=== PATIENT | female | born 1955 | race Caucasian/White ===

== ENCOUNTER 2018-03-14 14:44 | Inpatient (IN) ==
[2018-03-14 16:01] LABS: Basophils % 0.5 % (0.0-0.8); Eosinophils % 0.5 % (0.00-10.9); Hematocrit 31.5 VOL% (35.7-47.0); Hemoglobin 10.6 GM/DL (12.0-16.0); Immature Granulocytes % 0.3 %; Immature Granulocytes Absolute 0.02 #; Lymphocytes # 0.6 10*3/uL (1.4-4.0); Lymphocytes % 9.2 % (21.3-54.2); Mean Corpuscular HGB Conc 33.7 GM/DL (32-36); Mean Corpuscular Hemoglobin 29 PG (27-34); Mean Corpuscular Volume 87.3 FL (87-102); Monocytes # 0.5 10*3/uL (0.11-0.8); Monocytes % 7.4 % (1.7-12.7); Neutrophils # 5.5 10*3/uL (1.4-7.4); Neutrophils % 82.1 % (38.7-73.9); Platelet Count 191 T/CUMM (130-400); Red Blood Count 3.61 MC/CUMM (3.8-5.5); White Blood Count 6.7 T/CUMM (4-12)
[2018-03-14] MEDS ORDERED: VANCOMYCIN INJ 1,000 MG in SODIUM CHLORIDE 0.9% 250 ML IV STA (16:10)
[2018-03-14] MEDS ORDERED: FUROSEMIDE 40 MG/4 ML VIAL IV STA (16:10)
[2018-03-14 16:23] LABS: Albumin 3.1 G/DL (3.4-5.0); Bilirubin,Total 0.5 MG/DL (0.2-1.0); Calcium 9.3 MG/DL (8.5-10.1); Osmolality,Calculated 318.9 MOS/KG (273-304); Potassium 3.4 MMOL/L (3.5-5.1); Total Protein 8.7 G/DL (6.4-8.3)
[2018-03-14 16:24] LABS: Lactic Acid 1.5 MMOL/L (0.4-2.0)
[2018-03-14] MEDS ORDERED: INSULIN REGULAR 100 UNIT/ML IV STA (16:40)
[2018-03-14] MEDS ORDERED: INSULIN REGULAR 100 UNIT/ML SUBCUT STA (16:40)
[2018-03-14] MEDS ORDERED: INSULIN REGULAR 100 UNIT/ML ONE (16:46)
[2018-03-14] MEDS ORDERED: FUROSEMIDE 40 MG/4 ML VIAL ONE (16:52)
[2018-03-14] MEDS ORDERED: VANCOMYCIN 1,000 MG VIAL ONE (16:52)
[2018-03-14 17:13] LABS: Apearance,Urine CLEAR (Clear); Bilirubin,Urine Negative (Negative); Blood, Urine Moderate mg/dL (Negative); Glucose,Urine (UA) >=500 mg/dL (Negative); Hyaline Casts,Urine 9 /LPF (0-3); Ketones,Urine Negative (Negative); Mucus,Urine Occasional /LPF (Occasional); Nitrite,Urine Negative (Negative); Protein,Urine Negative; RBC,Urine 1 /HPF (0-4); Urine Color Yellow (Yellow); Urine Specific Gravity 1.006 (1.001-1.035); Urine Urobilinogen < 2.0 EU/DL (0.2-1.0); WBC,Urine <1 /HPF (0-6)
[2018-03-14] MEDS ORDERED: GLUCAGON 1 MG VIAL IM PRN (18:59)
[2018-03-14] MEDS ORDERED: DEXTROSE 50% 25 GM/50 ML VIAL IV PRN (18:59)
[2018-03-14] MEDS ORDERED: MAGNESIUM SULF RIDER 2 GM in PREMIX 1 EACH IV PRN (20:45)
[2018-03-14] MEDS ORDERED: PRAMIPEXOLE 0.25 MG TABLET PO SCH (21:00)
[2018-03-14] MEDS: ENOXAPARIN 30 MG/0.3 ML SYRINGE SUBCUT SCH (21:09)
[2018-03-14] MEDS: SODIUM CHLORIDE 0.9% 1,000 ML IV SCH (21:09)
[2018-03-14] MEDS: CARVEDILOL 3.125 MG TABLET PO SCH (21:17)
[2018-03-14] MEDS: TAMOXIFEN 10 MG TABLET PO SCH (21:17)
[2018-03-14] MEDS: INSULIN LISPRO 100 UNIT/ML SUBCUT SCH (21:17)
[2018-03-14] MEDS: CEFTAROLINE 300 MG in SODIUM CHLORIDE 0.9% 100 ML IV SCH (21:18)
[2018-03-15] MEDS: INSULIN LISPRO 100 UNIT/ML SUBCUT SCH ×6 (04:25→21:31)
[2018-03-15 05:26] LABS: Basophils % 0.3 % (0.0-0.8); Eosinophils % 0.1 % (0.00-10.9); Hematocrit 28.6 VOL% (35.7-47.0); Hemoglobin 9.9 GM/DL (12.0-16.0); Immature Granulocytes % 1.4 %; Immature Granulocytes Absolute 0.14 #; Lymphocytes # 0.7 10*3/uL (1.4-4.0); Lymphocytes % 7.3 % (21.3-54.2); Mean Corpuscular HGB Conc 34.6 GM/DL (32-36); Mean Corpuscular Hemoglobin 30 PG (27-34); Mean Corpuscular Volume 85.9 FL (87-102); Mean Platelet Volume 10.8 FL (9.6-12.0); Monocytes # 0.6 10*3/uL (0.11-0.8); Monocytes % 5.6 % (1.7-12.7); NRBC # 0.03 10*3/uL; Neutrophils # 8.6 10*3/uL (1.4-7.4); Neutrophils % 85.3 % (38.7-73.9); Platelet Count 188 T/CUMM (130-400); Red Blood Count 3.33 MC/CUMM (3.8-5.5); Red Cell Distribution Width 13.8 % (9.3-17.3)
[2018-03-15 06:11] LABS: Risk Ratio 3.87; Thyroid Stimulating Hormone 2.02 uIU/ml (0.358-3.74); VLDL CHOLESTEROL 32.2 MG/DL
[2018-03-15] MEDS ORDERED: metOLazone 5 MG TABLET PO SCH (09:00)
[2018-03-15] MEDS ORDERED: TORSEMIDE 100 MG PO SCH (09:00)
[2018-03-15] MEDS: CARVEDILOL 3.125 MG TABLET PO SCH ×2 (09:45→16:09)
[2018-03-15] MEDS: PANTOPRAZOLE 40 MG TABLET PO SCH (09:45)
[2018-03-15] MEDS: CEFTAROLINE 300 MG in SODIUM CHLORIDE 0.9% 100 ML IV SCH ×2 (09:48→21:33)
[2018-03-15] MEDS ORDERED: GLUCAGON 1 MG VIAL IM PRN (13:13)
[2018-03-15] MEDS ORDERED: DEXTROSE 50% 25 GM/50 ML VIAL IV PRN (13:13)
[2018-03-15] MEDS: SODIUM CHLORIDE 0.9% 1,000 ML IV SCH ×2 (13:32→22:35)
[2018-03-15] MEDS ORDERED: CYCLOBENZAPRINE 10 MG TABLET PO PRN (15:00)
[2018-03-15] MEDS: ENOXAPARIN 30 MG/0.3 ML SYRINGE SUBCUT SCH (21:23)
[2018-03-15] MEDS: TAMOXIFEN 10 MG TABLET PO SCH (21:27)
[2018-03-16] MEDS: INSULIN LISPRO 100 UNIT/ML SUBCUT SCH ×6 (01:02→21:59)
[2018-03-16 04:32] LABS: Basophils % 0.3 % (0.0-0.8); Eosinophils % 0.3 % (0.00-10.9); Hematocrit 33.5 VOL% (35.7-47.0); Immature Granulocytes % 0.3 %; Immature Granulocytes Absolute 0.02 #; Lymphocytes # 0.7 10*3/uL (1.4-4.0); Lymphocytes % 9.4 % (21.3-54.2); Mean Corpuscular HGB Conc 32.8 GM/DL (32-36); Mean Corpuscular Hemoglobin 29 PG (27-34); Mean Corpuscular Volume 87.9 FL (87-102); Mean Platelet Volume 10.8 FL (9.6-12.0); Monocytes # 0.4 10*3/uL (0.11-0.8); Monocytes % 6.1 % (1.7-12.7); Neutrophils # 5.9 10*3/uL (1.4-7.4); Neutrophils % 83.6 % (38.7-73.9); Platelet Count 157 T/CUMM (130-400); Red Blood Count 3.81 MC/CUMM (3.8-5.5); Red Cell Distribution Width 13.9 % (9.3-17.3)
[2018-03-16 05:11] LABS: Calcium 8.8 MG/DL (8.5-10.1); Osmolality,Calculated 312.2 MOS/KG (273-304); Potassium 2.6 MMOL/L (3.5-5.1)
[2018-03-16] MEDS: PANTOPRAZOLE 40 MG TABLET PO SCH (09:49)
[2018-03-16] MEDS: CARVEDILOL 3.125 MG TABLET PO SCH ×2 (09:49→17:21)
[2018-03-16] MEDS: CEFTAROLINE 300 MG in SODIUM CHLORIDE 0.9% 100 ML IV SCH ×2 (09:52→21:59)
[2018-03-16] MEDS ORDERED: POTASSIUM CHLORIDE 20 MEQ TABLET PO ONE (11:15)
[2018-03-16] MEDS: SODIUM CHLOR 0.9% KCL 40 MEQ 40 MEQ/1,000 ML BAG IV SCH (12:17)
[2018-03-16] MEDS: DICLOFENAC 1% GEL 100 GM TUBE TOP SCH ×2 (14:23→21:58)
[2018-03-16] MEDS: ALUMINUM/MAGNES/SIMETH MAX STR 30 ML UDCUP PO PRN (17:16)
[2018-03-16] MEDS: ENOXAPARIN 30 MG/0.3 ML SYRINGE SUBCUT SCH (21:55)
[2018-03-16] MEDS: TAMOXIFEN 10 MG TABLET PO SCH (21:58)
[2018-03-16] MEDS: SODIUM CHLORIDE 0.9% 1,000 ML IV SCH (23:13)
[2018-03-17] MEDS: INSULIN LISPRO 100 UNIT/ML SUBCUT SCH ×7 (01:03→23:41)
[2018-03-17] MEDS: ALUMINUM/MAGNES/SIMETH MAX STR 30 ML UDCUP PO PRN (01:07)
[2018-03-17] MEDS: SODIUM CHLOR 0.9% KCL 40 MEQ 40 MEQ/1,000 ML BAG IV SCH ×2 (01:08→16:15)
[2018-03-17 07:03] LABS: Basophils % 0.3 % (0.0-0.8); Eosinophils # 0.1 10*3/uL (0.0-0.87); Eosinophils % 1.8 % (0.00-10.9); Hematocrit 29.4 VOL% (35.7-47.0); Hemoglobin 9.6 GM/DL (12.0-16.0); Immature Granulocytes % 0.4 %; Immature Granulocytes Absolute 0.03 #; Lymphocytes # 0.7 10*3/uL (1.4-4.0); Lymphocytes % 10.1 % (21.3-54.2); Mean Corpuscular HGB Conc 32.7 GM/DL (32-36); Mean Corpuscular Hemoglobin 30 PG (27-34); Monocytes # 0.5 10*3/uL (0.11-0.8); Monocytes % 6.3 % (1.7-12.7); Neutrophils % 81.1 % (38.7-73.9); Platelet Count 178 T/CUMM (130-400); Red Blood Count 3.23 MC/CUMM (3.8-5.5); Red Cell Distribution Width 13.9 % (9.3-17.3); White Blood Count 7.4 T/CUMM (4-12)
[2018-03-17 07:18] LABS: Calcium 8.7 MG/DL (8.5-10.1); Osmolality,Calculated 312.5 MOS/KG (273-304); Potassium 3.5 MMOL/L (3.5-5.1)
[2018-03-17] MEDS: CARVEDILOL 3.125 MG TABLET PO SCH ×2 (09:21→16:05)
[2018-03-17] MEDS: PANTOPRAZOLE 40 MG TABLET PO SCH (09:21)
[2018-03-17] MEDS: DICLOFENAC 1% GEL 100 GM TUBE TOP SCH ×3 (09:21→21:02)
[2018-03-17] MEDS: CEFTAROLINE 300 MG in SODIUM CHLORIDE 0.9% 100 ML IV SCH (12:00)
[2018-03-17] MEDS ORDERED: PRAMIPEXOLE 0.25 MG TABLET PO PRN (14:35)
[2018-03-17] MEDS: AMOXICILLIN/CLAV 500 MG TABLET PO SCH ×2 (15:39→21:03)
[2018-03-17] MEDS: AMMONIUM LACTATE 12% LOTION 240 ML BOTTLE TOP SCH ×2 (16:12→21:02)
[2018-03-17] MEDS: CLOTRIMAZOLE 1% CREAM 15 GM TUBE TOP SCH ×2 (16:13→21:04)
[2018-03-17] MEDS ORDERED: INSULIN GLARGINE 100 UNIT/ML SUBCUT SCH (21:00)
[2018-03-17] MEDS: ENOXAPARIN 30 MG/0.3 ML SYRINGE SUBCUT SCH (21:02)
[2018-03-17] MEDS: TAMOXIFEN 10 MG TABLET PO SCH (21:03)
[2018-03-17] MEDS: INSULIN GLARGINE 100 UNIT/ML SUBCUT SCH (21:05)
[2018-03-18] MEDS: INSULIN LISPRO 100 UNIT/ML SUBCUT SCH ×5 (03:38→20:47)
[2018-03-18 04:11] LABS: Basophils % 0.6 % (0.0-0.8); Eosinophils # 0.3 10*3/uL (0.0-0.87); Eosinophils % 5.1 % (0.00-10.9); Hematocrit 27.7 VOL% (35.7-47.0); Hemoglobin 8.7 GM/DL (12.0-16.0); Immature Granulocytes % 0.5 %; Immature Granulocytes Absolute 0.03 #; Lymphocytes # 1.2 10*3/uL (1.4-4.0); Lymphocytes % 18.4 % (21.3-54.2); Mean Corpuscular HGB Conc 31.4 GM/DL (32-36); Mean Corpuscular Hemoglobin 29 PG (27-34); Mean Corpuscular Volume 92.6 FL (87-102); Mean Platelet Volume 10.9 FL (9.6-12.0); Monocytes # 0.6 10*3/uL (0.11-0.8); Monocytes % 8.4 % (1.7-12.7); Neutrophils # 4.4 10*3/uL (1.4-7.4); Platelet Count 156 T/CUMM (130-400); Red Blood Count 2.99 MC/CUMM (3.8-5.5); Red Cell Distribution Width 13.9 % (9.3-17.3); White Blood Count 6.5 T/CUMM (4-12)
[2018-03-18 04:36] LABS: Calcium 8.2 MG/DL (8.5-10.1); Osmolality,Calculated 310.4 MOS/KG (273-304); Potassium 3.9 MMOL/L (3.5-5.1)
[2018-03-18] MEDS: CARVEDILOL 3.125 MG TABLET PO SCH ×2 (10:18→17:27)
[2018-03-18] MEDS: INSULIN GLARGINE 100 UNIT/ML SUBCUT SCH ×2 (10:18→20:47)
[2018-03-18] MEDS: AMOXICILLIN/CLAV 500 MG TABLET PO SCH ×2 (10:18→20:46)
[2018-03-18] MEDS: PANTOPRAZOLE 40 MG TABLET PO SCH (10:18)
[2018-03-18] MEDS: AMMONIUM LACTATE 12% LOTION 240 ML BOTTLE TOP SCH ×2 (10:19→20:47)
[2018-03-18] MEDS: CLOTRIMAZOLE 1% CREAM 15 GM TUBE TOP SCH ×2 (10:19→20:45)
[2018-03-18] MEDS: DICLOFENAC 1% GEL 100 GM TUBE TOP SCH ×3 (10:19→20:45)
[2018-03-18] MEDS: ENOXAPARIN 30 MG/0.3 ML SYRINGE SUBCUT SCH (20:45)
[2018-03-18] MEDS: TAMOXIFEN 10 MG TABLET PO SCH (20:46)
[2018-03-19] MEDS: INSULIN LISPRO 100 UNIT/ML SUBCUT SCH ×4 (00:43→12:34)
[2018-03-19] MEDS: PANTOPRAZOLE 40 MG TABLET PO SCH (10:55)
[2018-03-19] MEDS: AMOXICILLIN/CLAV 500 MG TABLET PO SCH (10:55)
[2018-03-19] MEDS: INSULIN GLARGINE 100 UNIT/ML SUBCUT SCH (10:56)
[2018-03-19] MEDS: DICLOFENAC 1% GEL 100 GM TUBE TOP SCH (10:56)
[2018-03-19] MEDS: CARVEDILOL 3.125 MG TABLET PO SCH (10:56)
[2018-03-19] MEDS: CLOTRIMAZOLE 1% CREAM 15 GM TUBE TOP SCH (10:57)
[2018-03-19] MEDS: AMMONIUM LACTATE 12% LOTION 240 ML BOTTLE TOP SCH (10:57)
[2018-03-19 12:05] VITALS: BP 145/51
== END 2018-03-19 15:50 | disposition home or self-care (01) | DRG 603 ==
LOC: N.ED 14:44 → N.EDINP 18:00 → N.3E 20:14
PROVIDERS: ADMIT Internal Medicine; ATTEND Internal Medicine

== ENCOUNTER 2019-02-20 15:27 | Inpatient (IN) ==
[2019-02-20] MEDS ORDERED: SODIUM CHLORIDE 0.9% 1,000 ML IV STA (16:11)
[2019-02-20 16:28] LABS: Basophils % 0.2 % (0.0-0.8); Hematocrit 38.9 VOL% (35.7-47.0); Hemoglobin 12.2 GM/DL (12.0-16.0); Immature Granulocytes % 0.9 %; Immature Granulocytes Absolute 0.09 #; Lymphocytes # 0.7 10*3/uL (1.4-4.0); Lymphocytes % 7.3 % (21.3-54.2); Mean Corpuscular HGB Conc 31.4 GM/DL (32-36); Monocytes % 5.5 % (1.7-12.7); Neutrophils % 86.1 % (38.7-73.9); Platelet Count 149 T/CUMM (130-400); Red Blood Count 4.01 MC/CUMM (3.8-5.5); Red Cell Distribution Width 13.2 % (9.3-17.3); White Blood Count 9.8 T/CUMM (4-12)
[2019-02-20 16:51] LABS: Albumin 3.4 G/DL (3.4-5.0); Bilirubin,Total 0.5 MG/DL (0.2-1.0); Calcium 8.8 MG/DL (8.5-10.1); Osmolality,Calculated 319.8 MOS/KG (273-304); Total Protein 7.3 G/DL (6.4-8.3)
[2019-02-20] MEDS ORDERED: INSULIN REGULAR 100 UNIT/ML IV STA (16:55)
[2019-02-20] MEDS ORDERED: DEXAMETHASONE 4 MG/1 ML VIAL IM STA (17:13)
[2019-02-20] MEDS ORDERED: ALBUTEROL 2.5 MG/3 ML NEB RESP TX PRN (17:18)
[2019-02-20] MEDS ORDERED: ONDANSETRON 4 MG/2 ML VIAL IV PRN (17:18)
[2019-02-20] MEDS ORDERED: PROMETHAZINE 25 MG/1 ML VIAL IM PRN (17:18)
[2019-02-20] MEDS ORDERED: MAGNESIUM SULF RIDER 4 GM in PREMIX 1 EACH IV PRN (17:20)
[2019-02-20] MEDS ORDERED: SODIUM PHOSPHATE IV PRN (17:20)
[2019-02-20] MEDS ORDERED: DEXTROSE 50% 25 GM/50 ML SYRINGE IV PRN ×2 (17:20)
[2019-02-20] MEDS ORDERED: INSULIN REGULAR 100 UNIT/ML IV ONE (17:20)
[2019-02-20] MEDS ORDERED: SODIUM CHLORIDE 0.9% IV PRN (17:20)
[2019-02-20] MEDS ORDERED: SODIUM CHLORIDE 0.9% 1,000 ML IV ONE (17:20)
[2019-02-20] MEDS ORDERED: SODIUM BICARB INJ 100 MEQ in STERILE WATER INJ 400 ML IV PRN (17:20)
[2019-02-20] MEDS ORDERED: MAGNESIUM SULF RIDER 2 GM in PREMIX 1 EACH IV PRN (17:20)
[2019-02-20] MEDS ORDERED: SENNA 8.6 MG TABLET PO PRN (18:07)
[2019-02-20] MEDS: INSULIN REGULAR DRIP 100 ML IV SCH (18:30)
[2019-02-20] MEDS: SODIUM CHLORIDE 0.9% 1,000 ML IV SCH ×2 (19:00→21:00)
[2019-02-20 20:51] LABS: Calcium 8.6 MG/DL (8.5-10.1)
[2019-02-20 20:59] LABS: Troponin I 2.95 NG/ML (0.00-0.045)
[2019-02-20] MEDS ORDERED: ENOXAPARIN 30 MG/0.3 ML SYRINGE SUBCUT SCH (21:00)
[2019-02-20 21:28] LABS: Apearance,Urine Slightly Hazy (Clear); Bacteria,Urine Occasional /HPF (Few); Bilirubin,Urine Negative (Negative); Blood, Urine Small mg/dL (Negative); Glucose,Urine (UA) >=500 mg/dL (Negative); Ketones,Urine 80 mg/dL (Negative); Mucus,Urine Occasional /LPF (Occasional); Nitrite,Urine Negative (Negative); Protein,Urine Negative; RBC,Urine 1 /HPF (0-4); Squamous Epithelial Cell,Urine Occasional /HPF (0-10); Urine Color Straw (Yellow); Urine Urobilinogen < 2.0 EU/DL (0.2-1.0); WBC,Urine 5 /HPF (0-6)
[2019-02-20] MEDS ORDERED: SODIUM CHLORIDE 0.9% 1,000 ML IV SCH (22:20)
[2019-02-20 22:33] LABS: Calcium 8.7 MG/DL (8.5-10.1); Osmolality,Calculated 311.5 MOS/KG (273-304)
[2019-02-20] MEDS: ENOXAPARIN 100 MG/ML SYRINGE SUBCUT SCH (22:48)
[2019-02-20 23:35] LABS: CKMB % 5.3 %
[2019-02-20 23:41] LABS: Troponin I 2.38 NG/ML (0.00-0.045)
[2019-02-20 23:47] LABS: ABG Base Excess -14.1 MMOL/L (-2.5-2.5); ABG HCO3 13.6 MMOL/L (20-26); ABG Oxygen Saturation 97.2 % (95-100); ABG PCO2 27.9 MM HG (35-48); ABG PH 7.247 (7.35-7.45); ABG TCO2 11.1 MMOL/L (23-27); Allen Test Positive; Pt O2 Delivery Device Room Air
[2019-02-21] MEDS: CARBOXYMETHYLCELLULOSE 1% OPH SOLN BOTH EYES SCH ×3 (00:08→20:55)
[2019-02-21] MEDS: TAMOXIFEN 10 MG TABLET PO SCH ×2 (00:09→20:55)
[2019-02-21] MEDS: CARVEDILOL 3.125 MG TABLET PO SCH ×3 (00:09→17:13)
[2019-02-21] MEDS: SODIUM CHLOR 0.45% KCL 20 MEQ 20 MEQ/1,000 ML BAG IV SCH ×2 (00:56→07:07)
[2019-02-21 01:31] LABS: Calcium 8.2 MG/DL (8.5-10.1); Osmolality,Calculated 311.1 MOS/KG (273-304)
[2019-02-21] MEDS ORDERED: DEXT 5% NACL 0.45% KCL 20 MEQ 20 MEQ/1,000 ML BAG IV SCH (05:30)
[2019-02-21 05:34] LABS: Basophils % 0.2 % (0.0-0.8); Eosinophils % 0.1 % (0.00-10.9); Hematocrit 31.9 VOL% (35.7-47.0); Hemoglobin 10.4 GM/DL (12.0-16.0); Immature Granulocytes % 0.8 %; Immature Granulocytes Absolute 0.07 #; Lymphocytes # 1.1 10*3/uL (1.4-4.0); Mean Corpuscular HGB Conc 32.6 GM/DL (32-36); Mean Corpuscular Volume 94.7 FL (87-102); Mean Platelet Volume 11.2 FL (9.6-12.0); Monocytes % 11.3 % (1.7-12.7); Neutrophils % 75.6 % (38.7-73.9); Platelet Count 114 T/CUMM (130-400); Red Blood Count 3.37 MC/CUMM (3.8-5.5); Red Cell Distribution Width 13.3 % (9.3-17.3); White Blood Count 9.1 T/CUMM (4-12)
[2019-02-21 05:50] LABS: Calcium 8.3 MG/DL (8.5-10.1); Osmolality,Calculated 305.1 MOS/KG (273-304)
[2019-02-21 05:54] LABS: Risk Ratio 5.1; VLDL CHOLESTEROL 48.6 MG/DL
[2019-02-21 06:07] LABS: Troponin I 2.45 NG/ML (0.00-0.045)
[2019-02-21] MEDS: SIMVASTATIN 10 MG TABLET PO SCH (08:16)
[2019-02-21] MEDS: PANTOPRAZOLE 40 MG TABLET PO SCH (08:16)
[2019-02-21] MEDS: ENOXAPARIN 100 MG/ML SYRINGE SUBCUT SCH ×2 (08:20→20:55)
[2019-02-21] MEDS: DEXTROSE 5% LACTATED RINGERS 1,000 ML IV SCH ×4 (09:17→23:16)
[2019-02-21 09:30] LABS: Calcium 8.2 MG/DL (8.5-10.1); Osmolality,Calculated 302.1 MOS/KG (273-304)
[2019-02-21] MEDS ORDERED: GLUCAGON 1 MG VIAL IM PRN (10:14)
[2019-02-21] MEDS ORDERED: DEXTROSE 50% 25 GM/50 ML VIAL IV PRN (10:14)
[2019-02-21] MEDS ORDERED: SODIUM CHLORIDE 0.45% 1,000 ML IV SCH (10:20)
[2019-02-21 14:01] LABS: Calcium 8.5 MG/DL (8.5-10.1); Osmolality,Calculated 296.3 MOS/KG (273-304)
[2019-02-21] MEDS: INSULIN REGULAR DRIP 100 ML IV SCH ×2 (14:35→17:34)
[2019-02-22] MEDS: DEXTROSE 5% LACTATED RINGERS 1,000 ML IV SCH ×2 (05:41→11:55)
[2019-02-22 05:45] LABS: Calcium 8.2 MG/DL (8.5-10.1); Osmolality,Calculated 290.1 MOS/KG (273-304)
[2019-02-22] MEDS: POTASSIUM CHLORIDE RIDER 10 MEQ in PREMIX 1 EACH IV PRN ×2 (06:00→07:09)
[2019-02-22] MEDS: POTASSIUM CHLORIDE 20 MEQ TABLET PO SCH ×4 (08:34→20:47)
[2019-02-22] MEDS: SIMVASTATIN 10 MG TABLET PO SCH (08:34)
[2019-02-22] MEDS: ASPIRIN EC 81 MG TABLET PO SCH (08:34)
[2019-02-22] MEDS: CARVEDILOL 3.125 MG TABLET PO SCH ×2 (08:34→16:39)
[2019-02-22] MEDS: PANTOPRAZOLE 40 MG TABLET PO SCH (08:34)
[2019-02-22] MEDS: ENOXAPARIN 100 MG/ML SYRINGE SUBCUT SCH (08:34)
[2019-02-22] MEDS: INSULIN GLARGINE 100 UNIT/ML SUBCUT SCH (08:40)
[2019-02-22] MEDS: TORSEMIDE 20 MG TABLET PO SCH (08:55)
[2019-02-22] MEDS: CARBOXYMETHYLCELLULOSE 1% OPH SOLN BOTH EYES SCH ×2 (09:08→22:10)
[2019-02-22] MEDS: INSULIN LISPRO 100 UNIT/ML SUBCUT SCH ×3 (11:52→20:48)
[2019-02-22] MEDS: cefTRIAXone 1,000 MG in SYRINGE 1 EACH IV SCH (13:53)
[2019-02-22] MEDS ORDERED: LACTATED RINGERS 500 ML IV ONE (17:53)
[2019-02-22] MEDS: LACTATED RINGERS 1,000 ML IV SCH ×2 (18:42→22:24)
[2019-02-22] MEDS: ROSUVASTATIN 10 MG TABLET PO SCH (20:47)
[2019-02-22] MEDS: TAMOXIFEN 10 MG TABLET PO SCH (20:47)
[2019-02-23] MEDS: INSULIN LISPRO 100 UNIT/ML SUBCUT SCH ×6 (02:09→21:23)
[2019-02-23 05:23] LABS: Osmolality,Calculated 290.5 MOS/KG (273-304)
[2019-02-23 05:26] LABS: Troponin I 1.1 NG/ML (0.00-0.045)
[2019-02-23] MEDS: LACTATED RINGERS 1,000 ML IV SCH ×2 (05:27→09:21)
[2019-02-23] MEDS: INSULIN GLARGINE 100 UNIT/ML SUBCUT SCH ×3 (09:11→21:22)
[2019-02-23] MEDS: ENOXAPARIN 40 MG/0.4 ML SYRINGE SUBCUT SCH (09:11)
[2019-02-23] MEDS: PANTOPRAZOLE 40 MG TABLET PO SCH (09:12)
[2019-02-23] MEDS: TORSEMIDE 20 MG TABLET PO SCH (09:12)
[2019-02-23] MEDS: CARVEDILOL 3.125 MG TABLET PO SCH ×2 (09:12→17:19)
[2019-02-23] MEDS: ASPIRIN EC 81 MG TABLET PO SCH (09:12)
[2019-02-23] MEDS: cefTRIAXone 1,000 MG in SYRINGE 1 EACH IV SCH (14:49)
[2019-02-23] MEDS: CARBOXYMETHYLCELLULOSE 1% OPH SOLN BOTH EYES SCH ×2 (17:19→21:24)
[2019-02-23] MEDS: TAMOXIFEN 10 MG TABLET PO SCH (21:24)
[2019-02-23] MEDS: ROSUVASTATIN 10 MG TABLET PO SCH (21:24)
[2019-02-24] MEDS: INSULIN LISPRO 100 UNIT/ML SUBCUT SCH ×6 (01:01→20:46)
[2019-02-24 03:19] LABS: Calcium 8.4 MG/DL (8.5-10.1); Osmolality,Calculated 292.4 MOS/KG (273-304)
[2019-02-24] MEDS: ENOXAPARIN 40 MG/0.4 ML SYRINGE SUBCUT SCH (08:56)
[2019-02-24] MEDS: POTASSIUM CHLORIDE RIDER 10 MEQ in PREMIX 1 EACH IV PRN ×2 (08:56→13:22)
[2019-02-24] MEDS: ASPIRIN EC 81 MG TABLET PO SCH (08:56)
[2019-02-24] MEDS: INSULIN GLARGINE 100 UNIT/ML SUBCUT SCH ×2 (08:56→20:46)
[2019-02-24] MEDS: PANTOPRAZOLE 40 MG TABLET PO SCH (08:56)
[2019-02-24] MEDS: CARVEDILOL 3.125 MG TABLET PO SCH ×2 (08:56→16:20)
[2019-02-24] MEDS: TORSEMIDE 20 MG TABLET PO SCH (08:56)
[2019-02-24] MEDS: CARBOXYMETHYLCELLULOSE 1% OPH SOLN BOTH EYES SCH ×2 (08:57→20:51)
[2019-02-24] MEDS: POTASSIUM CHLORIDE RIDER 20 MEQ in PREMIX 1 EACH IV PRN ×2 (09:17→11:21)
[2019-02-24] MEDS: cefTRIAXone 1,000 MG in SYRINGE 1 EACH IV SCH (13:03)
[2019-02-24] MEDS: TAMOXIFEN 10 MG TABLET PO SCH (20:47)
[2019-02-24] MEDS: ROSUVASTATIN 10 MG TABLET PO SCH (20:48)
[2019-02-25] MEDS: INSULIN LISPRO 100 UNIT/ML SUBCUT SCH ×6 (00:59→20:44)
[2019-02-25 05:26] LABS: Basophils % 0.1 % (0.0-0.8); Eosinophils # 0.2 10*3/uL (0.0-0.87); Hematocrit 38.9 VOL% (35.7-47.0); Hemoglobin 12.4 GM/DL (12.0-16.0); Immature Granulocytes % 0.8 %; Immature Granulocytes Absolute 0.06 #; Lymphocytes # 1.5 10*3/uL (1.4-4.0); Mean Corpuscular HGB Conc 31.9 GM/DL (32-36); Mean Platelet Volume 11.4 FL (9.6-12.0); Monocytes % 10.6 % (1.7-12.7); Neutrophils % 67.5 % (38.7-73.9); Platelet Count 101 T/CUMM (130-400); Red Blood Count 4.05 MC/CUMM (3.8-5.5); Red Cell Distribution Width 13.2 % (9.3-17.3); White Blood Count 7.9 T/CUMM (4-12)
[2019-02-25] MEDS: ASPIRIN EC 81 MG TABLET PO SCH (08:45)
[2019-02-25] MEDS: CARBOXYMETHYLCELLULOSE 1% OPH SOLN BOTH EYES SCH ×2 (08:45→20:45)
[2019-02-25] MEDS: TORSEMIDE 20 MG TABLET PO SCH (08:45)
[2019-02-25] MEDS: CARVEDILOL 3.125 MG TABLET PO SCH ×2 (08:46→16:00)
[2019-02-25] MEDS: PANTOPRAZOLE 40 MG TABLET PO SCH (08:46)
[2019-02-25] MEDS: INSULIN GLARGINE 100 UNIT/ML SUBCUT SCH ×2 (08:46→20:48)
[2019-02-25] MEDS: ENOXAPARIN 40 MG/0.4 ML SYRINGE SUBCUT SCH (08:46)
[2019-02-25] MEDS: cefTRIAXone 1,000 MG in SYRINGE 1 EACH IV SCH (13:55)
[2019-02-25] MEDS ORDERED: INSULIN GLARGINE 100 UNIT/ML SUBCUT SCH (13:59)
[2019-02-25] MEDS ORDERED: SODIUM CHLORIDE 0.9% 500 ML IV ONE (14:18)
[2019-02-25] MEDS: ROSUVASTATIN 10 MG TABLET PO SCH (20:45)
[2019-02-25] MEDS: TAMOXIFEN 10 MG TABLET PO SCH (20:46)
[2019-02-25] MEDS: ACETAMINOPHEN 325 MG TABLET PO PRN (20:46)
[2019-02-26] MEDS: INSULIN LISPRO 100 UNIT/ML SUBCUT SCH ×4 (01:53→12:33)
[2019-02-26 02:30] LABS: Basophils % 0.2 % (0.0-0.8); Eosinophils # 0.2 10*3/uL (0.0-0.87); Eosinophils % 1.9 % (0.00-10.9); Hematocrit 37.6 VOL% (35.7-47.0); Immature Granulocytes % 0.4 %; Immature Granulocytes Absolute 0.03 #; Lymphocytes # 1.5 10*3/uL (1.4-4.0); Lymphocytes % 17.9 % (21.3-54.2); Mean Corpuscular HGB Conc 31.9 GM/DL (32-36); Mean Corpuscular Volume 95.9 FL (87-102); Mean Platelet Volume 11.3 FL (9.6-12.0); Monocytes % 11.2 % (1.7-12.7); Neutrophils % 68.4 % (38.7-73.9); Platelet Count 123 T/CUMM (130-400); Red Blood Count 3.92 MC/CUMM (3.8-5.5); Red Cell Distribution Width 13.2 % (9.3-17.3); White Blood Count 8.4 T/CUMM (4-12)
[2019-02-26 02:55] LABS: Calcium 8.4 MG/DL (8.5-10.1); Osmolality,Calculated 282.8 MOS/KG (273-304)
[2019-02-26] MEDS: ACETAMINOPHEN 325 MG TABLET PO PRN ×2 (04:50→08:42)
[2019-02-26] MEDS: POTASSIUM CHLORIDE RIDER 20 MEQ in PREMIX 1 EACH IV PRN ×2 (08:36→10:40)
[2019-02-26] MEDS: CARVEDILOL 3.125 MG TABLET PO SCH (08:37)
[2019-02-26] MEDS: TORSEMIDE 20 MG TABLET PO SCH (08:37)
[2019-02-26] MEDS: ASPIRIN EC 81 MG TABLET PO SCH (08:37)
[2019-02-26] MEDS: PANTOPRAZOLE 40 MG TABLET PO SCH (08:37)
[2019-02-26] MEDS: CARBOXYMETHYLCELLULOSE 1% OPH SOLN BOTH EYES SCH (08:38)
[2019-02-26] MEDS: ENOXAPARIN 40 MG/0.4 ML SYRINGE SUBCUT SCH (08:38)
[2019-02-26] MEDS ORDERED: MAGNESIUM CHLORIDE 64 MG TABLET PO SCH (10:59)
[2019-02-26] MEDS ORDERED: HEPARIN LOCK FLUSH 500 UNIT/5 ML SYRINGE IV ONE (12:30)
[2019-02-26] MEDS: POTASSIUM CHLORIDE RIDER 10 MEQ in PREMIX 1 EACH IV PRN (12:40)
[2019-02-26] MEDS: cefTRIAXone 1,000 MG in SYRINGE 1 EACH IV SCH (14:10)
[2019-02-26 14:22] VITALS: BP 102/76
[2019-02-27] MEDS ORDERED: TORSEMIDE 20 MG TABLET PO SCH (09:00)
== END 2019-02-26 15:35 | disposition swing bed (61) | DRG 638 ==
LOC: EDBD → EDUNIT# → N.ED 15:27 → SUATTDRO 17:18 → N.EDINP 17:18 → SUATTDRO 17:19 → N.ICU 21:12 → N.4E 02-22 22:09
PROVIDERS: ADMIT Family Medicine; ATTEND Internal Medicine

== ENCOUNTER 2019-05-06 13:19 | Observation (INO) ==
[2019-05-06] MEDS ORDERED: ONDANSETRON 4 MG/2 ML VIAL IV ONE (14:14)
[2019-05-06] MEDS ORDERED: SODIUM CHLORIDE 0.9% 1,000 ML IV STA (14:14)
[2019-05-06 14:40] LABS: Basophils # 0.1 10*3/uL (0.0-0.2); Basophils % 0.8 % (0.0-0.8); Eosinophils # 0.1 10*3/uL (0.0-0.87); Eosinophils % 1.8 % (0.00-10.9); Hematocrit 35.8 VOL% (35.7-47.0); Hemoglobin 11.8 GM/DL (12.0-16.0); Immature Granulocytes % 0.5 %; Immature Granulocytes Absolute 0.04 #; Lymphocytes # 1.1 10*3/uL (1.4-4.0); Lymphocytes % 13.4 % (21.3-54.2); Mean Corpuscular Volume 91.1 FL (87-102); Monocytes % 5.9 % (1.7-12.7); Neutrophils % 77.6 % (38.7-73.9); Platelet Count 149 T/CUMM (130-400); Red Blood Count 3.93 MC/CUMM (3.8-5.5); Red Cell Distribution Width 11.8 % (9.3-17.3)
[2019-05-06 14:48] LABS: INR 0.9
[2019-05-06 14:59] LABS: Alanine Aminotransferase 39 U/L (13-56); Albumin 3.4 G/DL (3.4-5.0); Alkaline Phosphatase 87 U/L (45-117); Aspartate Amino Transferase 22 U/L (0-37); Blood Urea Nitrogen 53 MG/DL (7-18); Calcium 8.9 MG/DL (8.5-10.1); Osmolality,Calculated 295.1 MOS/KG (273-304); Total Protein 7.6 G/DL (6.4-8.3); Troponin I < 0.015 NG/ML (0.00-0.045)
[2019-05-06 15:14] LABS: Glucose 556 MG/DL (74-106)
[2019-05-06 15:17] LABS: Apearance,Urine CLEAR (Clear); Bacteria,Urine Occasional /HPF (Few); Bilirubin,Urine Negative (Negative); Blood, Urine Small mg/dL (Negative); Glucose,Urine (UA) >=500 mg/dL (Negative); Ketones,Urine 20 mg/dL (Negative); Mucus,Urine Occasional /LPF (Occasional); Nitrite,Urine Negative (Negative); Protein,Urine Negative; Urine Color Straw (Yellow); Urine Specific Gravity 1.007 (1.001-1.035); Urine Urobilinogen < 2.0 EU/DL (0.2-1.0); WBC,Urine 5 /HPF (0-6)
[2019-05-06] MEDS ORDERED: INSULIN REGULAR 100 UNIT/ML IV ONE (15:17)
[2019-05-06 15:56] LABS: Pt O2 Delivery Device Room Air
[2019-05-06 15:57] LABS: ABG HCO3 23.6 MMOL/L (20-26); ABG PCO2 30.2 MM HG (35-48); ABG PH 7.467 (7.35-7.45); ABG TCO2 19.2 MMOL/L (23-27)
[2019-05-06] MEDS ORDERED: GLUCAGON 1 MG VIAL IM PRN (16:52)
[2019-05-06] MEDS ORDERED: DEXTROSE 50% 25 GM/50 ML VIAL IV PRN (16:52)
[2019-05-06] MEDS ORDERED: ONDANSETRON 4 MG/2 ML VIAL IV PRN (16:52)
[2019-05-06] MEDS ORDERED: LACTULOSE 20 GM/30 ML UDCUP PO PRN (16:52)
[2019-05-06] MEDS ORDERED: ACETAMINOPHEN 325 MG TABLET PO PRN (16:52)
[2019-05-06 17:21] LABS: Thyroid Stimulating Hormone 2.22 uIU/ml (0.358-3.74)
[2019-05-06] MEDS: ENOXAPARIN 30 MG/0.3 ML SYRINGE SUBCUT SCH (17:25)
[2019-05-06] MEDS: SODIUM CHLORIDE 0.9% 1,000 ML IV SCH (18:33)
[2019-05-06] MEDS: INSULIN REGULAR 100 UNIT/ML SUBCUT SCH (21:56)
[2019-05-07 04:45] LABS: Basophils # 0.1 10*3/uL (0.0-0.2); Basophils % 0.8 % (0.0-0.8); Eosinophils # 0.3 10*3/uL (0.0-0.87); Eosinophils % 4.4 % (0.00-10.9); Hematocrit 30.7 VOL% (35.7-47.0); Hemoglobin 10.2 GM/DL (12.0-16.0); Immature Granulocytes % 0.3 %; Immature Granulocytes Absolute 0.02 #; Lymphocytes # 1.9 10*3/uL (1.4-4.0); Lymphocytes % 30.2 % (21.3-54.2); Mean Corpuscular HGB Conc 33.2 GM/DL (32-36); Mean Corpuscular Volume 91.6 FL (87-102); Mean Platelet Volume 11.4 FL (9.6-12.0); Monocytes % 8.5 % (1.7-12.7); Neutrophils % 55.8 % (38.7-73.9); Platelet Count 140 T/CUMM (130-400); Red Blood Count 3.35 MC/CUMM (3.8-5.5); Red Cell Distribution Width 12.1 % (9.3-17.3); White Blood Count 6.4 T/CUMM (4-12)
[2019-05-07 05:22] LABS: Calcium 8.4 MG/DL (8.5-10.1); Osmolality,Calculated 298.3 MOS/KG (273-304); Risk Ratio 4.33; VLDL CHOLESTEROL 70.2 MG/DL
[2019-05-07] MEDS: INSULIN REGULAR 100 UNIT/ML SUBCUT SCH ×4 (10:10→22:08)
[2019-05-07] MEDS: INSULIN ASPART PROTAMINE/ASPART 70/30 100 UNIT/ML SUBCUT SCH (10:11)
[2019-05-07] MEDS: POTASSIUM CHLORIDE 20 MEQ TABLET PO SCH (10:11)
[2019-05-07] MEDS: PANTOPRAZOLE 40 MG TABLET PO SCH (10:11)
[2019-05-07] MEDS: SODIUM CHLORIDE 0.9% 1,000 ML IV SCH (10:15)
[2019-05-07] MEDS: ENOXAPARIN 30 MG/0.3 ML SYRINGE SUBCUT SCH (17:10)
[2019-05-07] MEDS: MENTHOL/ZINC OXIDE OINT 71 GM JAR TOP SCH (22:08)
[2019-05-08 06:10] LABS: Calcium 8.7 MG/DL (8.5-10.1); Osmolality,Calculated 293.3 MOS/KG (273-304)
[2019-05-08] MEDS ORDERED: SENNA 8.6 MG TABLET PO PRN (07:46)
[2019-05-08] MEDS ORDERED: PHENAZOPYRIDINE 95 MG TABLET PO PRN (07:46)
[2019-05-08] MEDS: POTASSIUM CHLORIDE 20 MEQ TABLET PO SCH (08:57)
[2019-05-08] MEDS: MAGNESIUM CHLORIDE 64 MG TABLET PO SCH ×2 (08:57→21:02)
[2019-05-08] MEDS: INSULIN ASPART PROTAMINE/ASPART 70/30 100 UNIT/ML SUBCUT SCH (08:57)
[2019-05-08] MEDS: DONEPEZIL 5 MG TABLET PO SCH (08:58)
[2019-05-08] MEDS: CARVEDILOL 3.125 MG TABLET PO SCH ×2 (08:58→21:02)
[2019-05-08] MEDS: PANTOPRAZOLE 40 MG TABLET PO SCH (08:58)
[2019-05-08] MEDS ORDERED: CARBOXYMETHYLCELLULOSE 1% OPH SOLN BOTH EYES PRN (09:00)
[2019-05-08] MEDS: INSULIN REGULAR 100 UNIT/ML SUBCUT SCH ×4 (11:28→21:01)
[2019-05-08] MEDS: SODIUM CHLORIDE 0.9% 1,000 ML IV SCH ×2 (11:30→21:03)
[2019-05-08] MEDS: MENTHOL/ZINC OXIDE OINT 71 GM JAR TOP SCH ×2 (11:36→21:03)
[2019-05-08] MEDS: ENOXAPARIN 30 MG/0.3 ML SYRINGE SUBCUT SCH (17:33)
[2019-05-08] MEDS ORDERED: SIMVASTATIN 10 MG TABLET PO SCH (21:00)
[2019-05-08] MEDS ORDERED: ASPIRIN EC 81 MG TABLET PO SCH (21:00)
[2019-05-08] MEDS ORDERED: TAMOXIFEN 10 MG TABLET PO SCH (21:00)
[2019-05-09] MEDS: SODIUM CHLORIDE 0.9% 1,000 ML IV SCH ×2 (00:37→08:30)
[2019-05-09 06:01] LABS: Calcium 8.2 MG/DL (8.5-10.1); Osmolality,Calculated 290.8 MOS/KG (273-304)
[2019-05-09] MEDS: INSULIN ASPART PROTAMINE/ASPART 70/30 100 UNIT/ML SUBCUT SCH (08:11)
[2019-05-09] MEDS: INSULIN REGULAR 100 UNIT/ML SUBCUT SCH ×2 (08:16→12:18)
[2019-05-09] MEDS: MAGNESIUM CHLORIDE 64 MG TABLET PO SCH (08:17)
[2019-05-09] MEDS: POTASSIUM CHLORIDE 20 MEQ TABLET PO SCH (08:17)
[2019-05-09] MEDS: PANTOPRAZOLE 40 MG TABLET PO SCH (08:18)
[2019-05-09] MEDS: DONEPEZIL 5 MG TABLET PO SCH (08:18)
[2019-05-09] MEDS: CARVEDILOL 3.125 MG TABLET PO SCH (08:18)
[2019-05-09] MEDS: MENTHOL/ZINC OXIDE OINT 71 GM JAR TOP SCH (08:19)
[2019-05-09 13:50] VITALS: BP 104/60
== END 2019-05-09 13:30 | disposition home or self-care (01) ==
LOC: EDBD → EDUNIT# → N.ED 13:19 → N.EDINP 13:19 → N.5E 18:03